=== PATIENT | male | born 1970 | race Caucasian/White ===

== ENCOUNTER 2022-11-16 15:30 | Emergency (ER) | payer OTHER, SELFPAY ==
[2022-11-16 15:47] VITALS: BP 125/80; PULSE 99; RESP 16; TEMP 36.8; O2SAT 98; BMI 32.1
--- NOTE | 2022-11-16 15:56 | DI.RAD.S_ITS ---
PROCEDURE: XR ACUTE ABDOMEN SERIES INDICATIONS: constipation TECHNIQUE: One view chest and two views of the abdomen were acquired. COMPARISON: None. FINDINGS: Surgical changes and devices: None. Chest: Lungs are clear. Heart size is normal. No pleural effusions. No pneumoperitoneum. Abdomen: Bowel gas pattern is normal. Mild scattered stool. No suspicious calcifications. Visualized solid organ contours appear normal. Bones: No suspicious bony lesions. IMPRESSION: Mild scattered stool. No obstruction. Dictated by: Gertrudis Lam M.D. on 11/16/2022 at 16:33 Approved by: Gertrudis Lam M.D. on 11/16/2022 at 16:33
--- NOTE | 2022-11-16 18:25 | ED.BACK ---
HPI - Back Pain/Injury General Chief Complaint: Back Pain/Injury Stated Complaint: back pain Time Seen by Provider: 11/16/22 18:14 Source: patient History of Present Illness HPI Narrative: 52-year-old male nonsmoker presents with his in the chief complaint of left back pain that has radiated around his left flank. He states that he started having pain on Monday and it seems to come and go with a mind of its own but at times maybe it is made worse when he moves and improves with rest. On the driving he had a significant worsening of the pain that wrapped around his left flank without obvious provocation or palliation. He is had no measured fever but did have an episode of chills, when the pain was quite significant. He is had no nausea or vomiting. He denies any dysuria, frequency or urgency. He has been constipated and had trouble moving his bowels. He denies any radiation of the pain down his leg and has no numbness, tingling or weakness of his extremities. He denies any loss of control of bowel or bladder. He has no footdrop. He denies trauma and has had no use of blood thinners, again he denies any midline pain. Related Data Previous Rx's Medication Instructions Recorded hydrocodone 5 mg-acetaminophen 325 1 tab PO Q4-6H PRN pain #10 tabs 11/16/22 mg tablet ketorolac 10 mg tablet 10 mg PO Q6H PRN pain #14 tabs 11/16/22 ondansetron 4 mg disintegrating 4 mg PO TID-QID PRN nausea and 11/16/22 tablet vomiting #10 tabs tamsulosin 0.4 mg capsule (Flomax) 0.4 mg PO DAILY #30 caps 11/16/22 Allergies Allergy/AdvReac Type Severity Reaction Status Date / Time No Known Allergies Allergy Uncoded 11/16/22 15:47 Review of Systems Review of Systems Narrative: GENERAL: Denies chills, fatigue, malaise, fever, sweats. HEENT: Denies sinus pain, ear pain, sore throat, difficulty swallowing, dizziness. RESPIRATORY: Denies dyspnea, cough, wheezing, hemoptysis, sputum. CARDIOVASCULAR: Denies chest pain, palpitations, orthopnea, edema, GASTROINTESTINAL: See HPI : See HPI MUSCULOSKELETAL: See HPI SKIN: Denies rash, skin lesions, or other NEUROLOGIC: Denies weakness, headache, numbness, change in speech, confusion, seizures, incoordination. PSYCHIATRIC: No concerning psychosocial issues. 12 point review of systems is negative except for those stated above Patient History Social History Smoking Status: Never smoker Smoking Status: Never smoker Substance Use Type: does not use Exam Narrative Exam Narrative: GENERAL: [52] year old patient appears stated age. Well-developed patient, in mild distress. HEAD: Atraumatic. Normocephalic. EYES: Pupils equal round and reactive. Extraocular motions intact. No scleral icterus. No injection or drainage. ENT: Nose without bleeding, purulent drainage. Throat without erythema, tonsillar hypertrophy or exudate. Airway patent. NECK: Trachea midline. Non tender CARDIOVASCULAR: Regular rate and rhythm without murmurs, gallops, or rubs. RESPIRATORY: Clear to auscultation. Breath sounds equal bilaterally. No wheezes, rales, or rhonchi. GASTROINTESTINAL: Abdomen soft, non-tender, nondistended. EXTREMITIES: No edema or joint tenderness. BACK: Nontender without deformity or crepitance. No flank tenderness. NEURO: AOx3. SKIN: No rash or erythema of visible areas Initial Vital Signs Initial Vital Signs: Vital Signs Temperature 98.2 F 11/16/22 15:47 Pulse Rate 99 H 11/16/22 15:47 Respiratory Rate 16 11/16/22 15:47 Blood Pressure 125/80 11/16/22 15:47 Pulse Oximetry 98 11/16/22 15:47 Oxygen Delivery Method Room Air 11/16/22 15:47 Course Orders Ordered: ED Orders 11/16/22 15:56 XR acute abdomen series Stat 11/16/22 18:26 Urine Microscopic Stat 11/16/22 19:18 CT kidney ureter bladder (KUB) Stat 11/16/22 19:27 Complete Blood Count AUTO DIFF Stat Comprehensive Metabolic Panel Stat Discontinued Medications Hydrocodone Bitart/Acetaminophen (Hydrocodone/Acet 5/325 Prepack) 1 bottle MISC SEEINSTR ONE Stop: 11/16/22 20:31 Ondansetron HCl (Ondansetron 4 Mg Odt Prepack) 1 bottle MISC SEEINSTR ONE Stop: 11/16/22 20:31 Tamsulosin HCl (Tamsulosin 0.4 Mg Capsule) 0.4 mg PO NOW ONE Stop: 11/16/22 20:31 Vital Signs Vital signs: Vital Signs - 8 hr 11/16/22 15:47 Temperature 98.2 F Pulse Rate 99 H Respiratory Rate 16 Blood Pressure 125/80 Pulse Oximetry 98 Oxygen Delivery Method Room Air MDM - Back Pain/Injury Lab Data 11/16/22 19:27 11/16/22 19:27 Labs: Lab Results 11/16/22 11/16/22 11/16/22 Range/Units 18:26 19:27 19:27 WBC 12.5 H (4.5-11.0) X10^3/uL RBC 4.89 (4.5-5.9) X10^6/uL Hgb 14.3 (13.5-17.5) g/dL Hct 42.3 (41-53) % MCV 86.6 (80-100) fL MCH 29.3 (26-34) PG MCHC 33.8 (30-36) % RDW 13.4 (11.6-14.8) % Plt Count 267 (150-400) X10^3/uL Neut % (Auto) 72.0 (50-75) % Lymph % (Auto) 16.6 L (25-40) % [place] % (Auto) 9.5 (3-14) % Eos % (Auto) 1.3 L (2-4) % Baso % (Auto) 0.6 (0-2) % Neut # (Auto) 9000 H (3556-7157) /uL Lymph # (Auto) 2100 (2434-5399) /uL [place] # (Auto) 1200 H (0-900) /uL Eos # (Auto) 200 (0-450) /uL Baso # (Auto) 100 (0-100) /uL Sodium 137 (137-145) mmol/L Potassium 4.0 (3.4-5.1) mmol/L Chloride 103 (98-107) mmol/L Carbon Dioxide 25 (22-32) mmol/L BUN 24 H (9-20) mg/dL Creatinine 1.56 H (0.66-1.25) mg/dL Estimated GFR 54 L (>60) mL/min BUN/Creatinine Ratio 15.4 (6-22) Glucose 100 (70-100) mg/dL Calcium 8.9 (8.4-10.2) mg/dL Total Bilirubin 1.3 (0.2-1.3) mg/dL AST 26 (17-59) IU/L ALT 33 (<50) IU/L Alkaline Phosphatase 69 (38-126) U/L Total Protein 7.4 (6.3-8.2) g/dL Albumin 4.1 (3.5-5.0) g/dL Globulin 3.3 (1.7-4.1) g/dL Albumin/Globulin Ratio 1.2 (1.0-2.8) Urine RBC 0-1/hpf (0-5/HPF) Urine WBC 1-5/hpf (0-5/HPF) Ur Squamous Epith Cells 0-1 /hpf (0-5/HPF) Urine Bacteria None seen (None) Ur Culture Indicated? Cult not indicated Urine Dip Bedside Urine Glucose Negative Bedside Urine Bilirubin - Negative Bedside Urine Ketone - Negative Urine Specific [place] 1.030 Bedside Urine Occult Blood +/- Bedside Urine pH 5.5 Bedside Urine Protein - Negative Bedside Urine Urobilinogen - Negative Bedside Urine Nitrite - Negative Bedside Urine Leukocytes - Negative Esterase Imaging Data Abdominal x-ray: Radiologist's Impression: Scattered stool, no obstructive process MDM Narrative Medical decision making narrative: CC: 52-year-old male with constipation and left back and flank pain Complicating co-morbidities: Age Data collected from: Patient Medical records reviewed: Prior notes reviewed in our EMR Differential considered, but not limited to: Urine infection, kidney stone, bowel obstruction, musculoskeletal versus other Exam documented above, pertinent findings include: Patient currently resting comfortably, no signs of cauda equina such as numbness or tingling in the saddle region, lower extremity weakness, sensory deficit or depressed reflexes. Abdomen soft and nontender, no CVA tenderness Lab Test results independently reviewed as above. Pertinent findings: Urine POC did note blood, UA shows no sign of infection or blood. Slight increase in white blood cells, H&H stable Imaging studies independently reviewed: X-ray demonstrates a nonobstructive process, CT shows 3mm L UVJ stone Discussion: Colicky left flank pain without provocation or palliation with minimal hematuria and no evidence of infection. There is no signs of sepsis, patient is pain-free here in the department. After further discussion he states that yesterday he felt something come out of his penis when he urinated and dropped into the toilet raising the question of maybe he passed a larger stone yesterday. He is tolerating orals, he does have a slight bump in his creatinine but doing quite well otherwise. Prescription sent to his pharmacy of choice Disposition: see below, along with detailed discharge instructions that have been reviewed with patient as well as indications for ED re-evaluation and additional outpatient follow up Discharge Plan Departure Patient Disposition: Home Clinical Impression: Kidney calculi Instructions: DI for Kidney Stones Activity Restrictions/Additional Instructions: *You have been diagnosed with [left-sided back and flank pain due to kidney stone. As we discussed based on your experience yesterday you may have passed a larger stone yesterday, the 1 that remains is 3 mm and has a very high likelihood of passing on its own] *What to do: *Please continue to take your regular medications as directed. [x ] New medication prescriptions sent to your pharmacy: [ [facility]] [ ] New medication written as a paper prescription [ ] No new medications given *Please follow up with your primary care provider in 2-3 days, call for an appointment. Let them know you were seen in the Emergency Department and that we ask that you be seen in follow up. We will electronically transmit a record of today's note if your PCP is in our system *Return to Emergency Department if you should have any new, worsening or concerning symptoms, such as [fever greater than 101 F, shaking chills, worsening pain, persistent vomiting or other bothersome symptoms] Prescriptions: New hydrocodone-acetaminophen 5-325 mg tablet 1 tab PO Q4-6H PRN (Reason: pain) Qty: 10 0RF ketorolac 10 mg tablet 10 mg PO Q6H PRN (Reason: pain) Qty: 14 0RF tamsulosin [Flomax] 0.4 mg capsule 0.4 mg PO DAILY Qty: 30 0RF ondansetron 4 mg tablet,disintegrating 4 mg PO TID-QID PRN (Reason: nausea and vomiting) Qty: 10 0RF Referrals: Dat Pineda MD [Physician] - Marya Zelaya ARNP [Primary Care Provider] - Stand Alone Forms: Patient Portal/API
--- NOTE | 2022-11-16 19:18 | DI.CT.S_ITS ---
PROCEDURE: CT KIDNEY URETER BLADDER (KUB) INDICATIONS: flank pain TECHNIQUE: Axial sections were acquired from the lung bases to the pubic symphysis. Coronal and sagittal reformats were performed. For radiation dose reduction, the following was used: automated exposure control, adjustment of mA and/or kV according to patient size. COMPARISON: None. FINDINGS: Lung bases: No pleural effusion. 3 millimeter right lower lobe nodule (3/7). URINARY: 3 millimeter stone at the left ureterovesical junction with mild upstream hydroureteronephrosis. A 1-2 millimeter nonobstructing stone is also present at the left inferior kidney. No right-sided urinary stone or hydroureteronephrosis Bladder: Normal wall thickness. No stones. ABDOMEN: Liver: Unremarkable. Gallbladder: Unremarkable. Biliary ducts: Unremarkable. Pancreas: Unremarkable. Spleen: Unremarkable. Adrenal Glands: Unremarkable. Stomach and Bowel: No bowel obstruction Peritoneum: No abnormal intraperitoneal fluid. No free air. Vessels: Aorta and inferior vena cava are normal in size. PELVIS: Pelvic Organs: Unremarkable. Bones: Multilevel degenerative change of the visualized spine. IMPRESSION: 1. A 3 millimeter stone is present at the left ureterovesical junction with mild upstream hydroureteronephrosis 2. A 3 millimeter right lower lobe pulmonary nodule is present. If the patient is considered low risk, no imaging follow-up is necessary for this finding per Fleischner society guidelines. If the patient is considered high risk, optional 12 month follow-up chest CT could be obtained Dictated by: Pedro Pablo Sherwood M.D. on 11/16/2022 at 20:15 Approved by: Pedro Pablo Sherwood M.D. on 11/16/2022 at 20:22
[2022-11-16 19:19] LABS: Bacteria Urine None Seen; Culture Indicated Urine Cult Not Indicated; RBC Urine 0-1/HPF (0-5/HPF); Squamous Epithelial Cell Urine 0-1 /HPF (0-5/HPF); WBC Urine 1-5/HPF (0-5/HPF)
[2022-11-16 19:38] LABS: Add Manual Diff / Slide Review NO; Basophils Absolute Auto 100 /uL (0-100); Basophils Percent Auto 0.6 % (0-2); Eosinophils Absolute Auto 200 /uL (0-450); Eosinophils Percent Auto 1.3 % (2-4); Hematocrit 42.3 % (41-53); Hemoglobin 14.3 g/dL (13.5-17.5); Lymphocytes Absolute Auto 2100 /uL (1100-4500); Lymphocytes Percent Auto 16.6 % (25-40); Mean Corpuscular HGB Conc 33.8 % (30-36); Mean Corpuscular Hemoglobin 29.3 PG (26-34); Mean Corpuscular Volume 86.6 fL (80-100); Monocytes Absolute Auto 1200 /uL (0-900); Monocytes Percent Auto 9.5 % (3-14); Neutrophils Absolute Auto 9000 /uL (1500-7000); Platelet Count 267 X10^3/uL (150-400); Red Blood Cell Count 4.89 X10^6/uL (4.5-5.9); Red Cell Distribution Width 13.4 % (11.6-14.8); White Blood Cell Count 12.5 X10^3/uL (4.5-11.0)
[2022-11-16 19:54] LABS: Alanine Aminotransferase 33 IU/L (<50); Albumin 4.1 g/dL (3.5-5.0); Albumin Globulin Ratio 1.2 (1.0-2.8); Alkaline Phosphatase 69 U/L (38-126); Aspartate Aminotransferase 26 IU/L (17-59); BUN Creatinine Ratio 15.4 (6-22); Bilirubin Total 1.3 mg/dL (0.2-1.3); Blood Urea Nitrogen 24 mg/dL (9-20); Calcium 8.9 mg/dL (8.4-10.2); Carbon Dioxide 25 mmol/L (22-32); Chloride 103 mmol/L (98-107); Estimated Glomerular Filt Rate 54 mL/min (>60); Globulin 3.3 g/dL (1.7-4.1); Glucose 100 mg/dL (70-100); HEMOLYSIS < 15 (0-50); Sodium 137 mmol/L (137-145); Total Protein 7.4 g/dL (6.3-8.2)
[2022-11-16] MEDS: TAMSULOSIN 0.4 MG CAPSULE PO (20:55)
[2022-11-16] MEDS: ONDANSETRON 4 MG ODT PREPACK 1 BOTTLE MISC (20:56)
[2022-11-16] MEDS: HYDROCODONE/ACET 5/325 PREPACK 1 BOTTLE MISC (20:56)
[2022-11-16 20:57] VITALS: BP 144/86; PULSE 78; RESP 16; TEMP 36.3; O2SAT 99
== END 2022-11-16 20:58 | disposition home or self-care (01) ==
PROVIDERS: Emergency Provider Emergency Medicine; PCP Nurse Practitioner Family
DX: N20.0 Calculus of kidney (principal)
CPT/HCPCS: 74022; 74176; 80053; 81003; 81015; 85025; 99283; 99284